=== PATIENT | male | born 1950 | race Caucasian/White ===

== ENCOUNTER 2023-02-11 12:49 | Inpatient (IN) | payer OTHER ==
[~2023-02-11] VITALS: Ht 180.3 cm; Wt 106.6 kg
[2023-02-11 12:50] VITALS: BP_SYST 132
[2023-02-11 13:55] LABS: BASOPHILS # (AUTO) 0.1 K/uL (0.0-0.2); EOSINOPHILS # (AUTO) 0.1 K/uL (0.0-0.4); EOSINOPHILS % (AUTO) 1.1 % (0.0-4.0); LYMPHOCYTES # (AUTO) 1.8 K/uL (1.0-5.5); LYMPHOCYTES % (AUTO) 19.7 % (20.5-51.5); MEAN CORPUSCULAR HEMOGLOBIN 31 pg (27-31); MEAN CORPUSCULAR HGB CONC 34 % (32-36); MEAN CORPUSCULAR VOLUME 91 fL (79.0-98.0); MONOCYTES # (AUTO) 0.8 K/uL (0.0-1.0); MONOCYTES % (AUTO) 9.1 % (1.7-9.3); NEUTROPHILS # (AUTO) 6.2 K/uL (1.8-7.7); NEUTROPHILS % (AUTO) 69.1 % (40.0-70.0); PLATELET COUNT (AUTO) 186 K/uL (130-430); RED BLOOD CELL COUNT(AUTO) 4.51 MIL/uL (4.2-6.2); RED CELL DISTRIBUTION WIDTH 13.6 % (9.0-15.0)
[2023-02-11 14:32] LABS: ALANINE AMINOTRANSFERASE 20 U/L (12-78); ALBUMIN 3.3 g/dL (3.4-4.8); ANION GAP 6 (5-15); ASPARTATE AMINOTRANSFERASE 17 U/L (10-37); CALCIUM 9.5 mg/dL (8.4-11.0); CHLORIDE 106 mmol/L (98-107); CREATININE 1.41 mg/dL (0.55-1.30); GLUCOSE 196 mg/dL (70-99); TOTAL BILIRUBIN 0.5 mg/dL (0.0-1.0); UREA NITROGEN, BLOOD 26 mg/dL (8-21)
[2023-02-11] MEDS ORDERED: iohexoL 350 mgI/mL, 100 ML INFUS..BTL IV ONE (16:22)
[2023-02-11 18:26] LABS: PROTHROMBIN TIME 10.4 SECS (9.5-12.5)
[2023-02-11] MEDS ORDERED: MORPHINE 4 MG INJ. 4 MG/ML VIAL IVP ONE (18:30)
[2023-02-11] MEDS ORDERED: ONDANSETRON HCL 4 MG/2 ML VIAL IVP ONE (18:30)
[2023-02-11] MEDS ORDERED: *HEPARIN PER PHARMACY XX ONE (18:45)
[2023-02-11] MEDS ORDERED: AMLO5TAB92 PO (19:02)
[2023-02-11] MEDS ORDERED: ZOLP5TAB2 PO (19:02)
[2023-02-11] MEDS ORDERED: PREG100C54 PO (19:02)
[2023-02-11] MEDS ORDERED: PANT40TA45 PO (19:02)
[2023-02-11] MEDS ORDERED: METF-381 PO (19:02)
[2023-02-11] MEDS ORDERED: FURO40TA5 PO (19:02)
[2023-02-11] MEDS ORDERED: HYDR-3927 PO (19:02)
[2023-02-11] MEDS ORDERED: APIX5TAB PO (19:02)
[2023-02-11] MEDS ORDERED: LOSA50TA3 PO (19:04)
[2023-02-11] MEDS ORDERED: INSU100V9 SQ (19:04)
[2023-02-11] MEDS ORDERED: CYCL1DRO16 EACH EYE (19:08)
[2023-02-11] MEDS ORDERED: ALLO100T PO (19:08)
[2023-02-11] MEDS ORDERED: EZET10TA30 PO (19:08)
[2023-02-11] MEDS ORDERED: HEPARIN SODIUM,PORCINE 2000 UNITS/0.4 ML BOLUS IVP PRN (20:15)
[2023-02-11] MEDS ORDERED: HEPARIN SODIUM,PORCINE 3000 UNITS/0.6 ML BOLUS IVP PRN (20:15)
[2023-02-11] MEDS ORDERED: HYDROcodone/ACETAMIN 5-325 MG TAB (NORCO/ VICODIN) PO ONE (20:30)
[2023-02-11] MEDS ORDERED: ONDANSETRON HCL 4 MG/2 ML VIAL ONE (20:33)
[2023-02-11] MEDS ORDERED: MORPHINE 4 MG INJ. 4 MG/ML VIAL ONE (20:33)
[2023-02-11 21:37] VITALS: BP_SYST 151
[2023-02-11] MEDS: HEPARIN 25,000 UNITS in 250 ML PREMIX IV PRN (22:44)
[2023-02-12] MEDS ORDERED: ZOLPIDEM TARTRATE 5 MG TABLET PO ONE (02:45)
[2023-02-12] MEDS ORDERED: ZOLPIDEM TARTRATE 5 MG TABLET ONE ×2 (02:47→21:53)
[2023-02-12 05:39] LABS: BASOPHILS # (AUTO) 0.1 K/uL (0.0-0.2); BASOPHILS % (AUTO) 1.2 % (0.0-2.0); EOSINOPHILS # (AUTO) 0.2 K/uL (0.0-0.4); EOSINOPHILS % (AUTO) 1.9 % (0.0-4.0); HEMATOCRIT 37.7 % (36-54); HEMOGLOBIN 12.8 g/dL (14.0-18.0); LYMPHOCYTES # (AUTO) 1.7 K/uL (1.0-5.5); LYMPHOCYTES % (AUTO) 19.2 % (20.5-51.5); MEAN CORPUSCULAR HEMOGLOBIN 31 pg (27-31); MEAN CORPUSCULAR HGB CONC 34 % (32-36); MEAN CORPUSCULAR VOLUME 91 fL (79.0-98.0); MONOCYTES # (AUTO) 0.8 K/uL (0.0-1.0); MONOCYTES % (AUTO) 8.5 % (1.7-9.3); NEUTROPHILS # (AUTO) 6.2 K/uL (1.8-7.7); NEUTROPHILS % (AUTO) 69.2 % (40.0-70.0); PLATELET COUNT (AUTO) 169 K/uL (130-430); RED BLOOD CELL COUNT(AUTO) 4.14 MIL/uL (4.2-6.2); RED CELL DISTRIBUTION WIDTH 13.7 % (9.0-15.0); WHITE BLOOD COUNT (AUTO) 8.9 K/uL (4.8-10.8)
[2023-02-12 08:00] VITALS: BP_SYST 143
[2023-02-12] MEDS: HEPARIN 25,000 UNITS in 250 ML PREMIX IV PRN (10:47)
[2023-02-12 12:17] VITALS: BP_SYST 135
[2023-02-12] MEDS ORDERED: traMADol HCL HCL 50 MG TABLET (ULTRAM) PO PRN (12:30)
[2023-02-12] MEDS: HYDROcodone/ACETAMIN 10-325 MG TAB PO PRN (12:51)
[2023-02-12] MEDS ORDERED: APIXABAN 2.5 MG TABLET PO ONE (14:30)
[2023-02-12] MEDS: SUCRALFATE 1 GM TABLET PO SCH ×2 (14:40→21:37)
[2023-02-12 17:23] VITALS: BP_SYST 112; BP_SYST 132
[2023-02-12] MEDS: APIXABAN 2.5 MG TABLET PO SCH (21:40)
[2023-02-13] MEDS: HYDROcodone/ACETAMIN 10-325 MG TAB PO PRN ×2 (01:37→09:04)
[2023-02-13 08:11] VITALS: BP_SYST 131
[2023-02-13] MEDS: SUCRALFATE 1 GM TABLET PO SCH (09:04)
[2023-02-13] MEDS: APIXABAN 2.5 MG TABLET PO SCH (09:07)
[2023-02-13 13:20] VITALS: BP_SYST 131
[2023-02-19] MEDS ORDERED: APIXABAN 2.5 MG TABLET PO SCH (21:00)
== END 2023-02-13 13:50 | disposition home or self-care (01) | DRG 176 ==
LOC: SED 12:49 → STU 18:37
PROVIDERS: ADMIT Specialist; ATTEND Specialist
DX: I26.99 Other pulmonary embolism without acute cor pulmonale (principal); D68.59 Other primary thrombophilia; I10 Essential (primary) hypertension; E11.9 Type 2 diabetes mellitus without complications; M10.9 Gout, unspecified; E78.5 Hyperlipidemia, unspecified; E66.9 Obesity, unspecified; Z79.891 Long term (current) use of opiate analgesic; Z79.899 Other long term (current) drug therapy; Z86.718 Personal history of other venous thrombosis and embolism; Z79.01 Long term (current) use of anticoagulants; Z68.32 Body mass index [BMI] 32.0-32.9, adult
CPT/HCPCS: 36415; 71045; 71275; 76376; 80053; 83880; 84484; 85025; 85610-TC; 85730-TC; 93005; 96374; 96375; 99291; G0378; J1644; J2270; J2405; J7040; Q9967